=== PATIENT | female | born 1960 | race Caucasian/White ===

== ENCOUNTER 2017-07-09 08:47 | Outpatient (CLI) | payer OTHER ==
[2017-07-09 09:50] LABS: BASOPHILS % 1.1 (0.0-1.5); EOSINOPHILS % 3.1 % (0.0-6.8); MEAN CORPUSCULAR HEMOGLOBIN 28.5 pg (28.0-34.0); MEAN CORPUSCULAR VOLUME 90.2 fl (80.0-100.0); MONOCYTES % 4.7 % (0.0-11.0); NEUTROPHILS # 2.7 # k/uL (1.4-7.7)
[2017-07-09 16:41] LABS: TOTAL PROTEIN 6.6 g/dL (6.0-8.5)
== END 2017-07-09 08:50 ==
LOC: LAB 08:47
PROVIDERS: ATTEND Physician Assistant
DX: F32.9 Major depressive disorder, single episode, unspecified (principal)
CPT/HCPCS: 36415; 80053; 82306; 84443; 85025